=== PATIENT | female | born 1960 | race Caucasian/White ===

== ENCOUNTER → 2016-04-06 | Outpatient (CLI) | payer BC ==
[~2016-04-06] MED LIST: CALC600T48; CHOL100010 PO; FLUT1AER5 INH; LEVO100T7 PO; MONT1TAB3 PO
--- NOTE | 2016-04-06 11:30 | DIAGNOSTIC IMAGING REPORT ---
RIGHT KNEE 2 VIEWS HISTORY: RIGHT KNEE PAIN Right COMPARISON: None. FINDINGS: There is no fracture or dislocation. Soft tissues are unremarkable. No knee effusion. Mild cartilage space narrowing at the medial and lateral compartments of the knee with associated marginal osteophytes. There is moderate cartilage space narrowing at the patellofemoral joint. IMPRESSION: Mild to moderate osteoarthritis within the right knee. No acute fractures. Electronically signed by: Byron Shipley M.D. 04/06/2016 11:28 AM Dictated Date/Time: 04/06/2016 11:26 AM
== END | disposition home or self-care (01) ==
LOC: C.RAD1850 11:12
PROVIDERS: ATTEND Family Medicine
DX: M17.11 Unilateral primary osteoarthritis, right knee (principal)

== ENCOUNTER → 2016-05-22 | Outpatient (CLI) | payer BC ==
--- NOTE | 2016-05-22 12:21 | DIAGNOSTIC IMAGING REPORT ---
CHEST 2 VIEWS ROUTINE CLINICAL HISTORY: R05 [id number] dyspnea COMPARISON STUDY: No previous studies for comparison. FINDINGS: The bones soft tissues and hemidiaphragms are normal. The cardiomediastinal silhouette is normal. The lungs are clear. The pulmonary vasculature is normal. IMPRESSION: Negative chest. Electronically signed by: Kieran Young M.D. 05/22/2016 12:19 PM Dictated Date/Time: 05/22/2016 12:19 PM
== END | disposition home or self-care (01) ==
LOC: C.RAD1850 12:08
PROVIDERS: ATTEND Allergy & Immunology Allergy
DX: R05 Cough (principal)

== ENCOUNTER → 2017-01-15 | Outpatient (CLI) | payer BC ==
--- NOTE | 2017-01-15 14:56 | MAMMOGRAPHY REPORT ---
BILATERAL DIGITAL SCREENING MAMMOGRAM TOMOSYNTHESIS WITH CAD: 01/15/2017 CLINICAL HISTORY: Routine screening. Patient has no complaints. TECHNIQUE: Breast tomosynthesis in addition to standard 2D mammography was performed. Current study was also evaluated with a Computer Aided Detection (CAD) system. COMPARISON: Comparison is made to exams dated: 01/13/2016 mammogram, 01/07/2015 mammogram, 4 mammogram, 12/27/2012 mammogram, and 12/15/2010 mammogram - [facility]. BREAST COMPOSITION: The tissue of both breasts is heterogeneously dense, which may obscure small mas ses. FINDINGS: There are stable biopsy marker clips in the medial left breast. A few stable punctate brady rocalcifications in the left breast. No suspicious mass, architectural distortion or cluster of suspi cious microcalcifications is seen. IMPRESSION: ACR BI-RADS CATEGORY 1: NEGATIVE There is no mammographic evidence of malignancy. A 1 year screening mammogram is recommended. The pa tient will receive written notification of the results. Approximately 10% of breast cancers are not detected with mammography. A negative mammographic report should not delay biopsy if a clinically suggestive mass is present. Safia Martinez M.D. ay/:01/15/2017 08:40:34 Program Coordinator Executive Education: Juany GARCIA(Evelyn)(Clara), [facility] letter sent: Normal 1/2 BI-RADS Code: ACR BI-RADS Category 1: Negative
== END | disposition home or self-care (01) ==
LOC: C.MAMM 08:20
PROVIDERS: ATTEND Family Medicine
DX: Z12.31 Encounter for screening mammogram for malignant neoplasm of breast (principal)

== ENCOUNTER → 2017-02-12 | Outpatient (CLI) | payer BC ==
--- NOTE | 2017-02-12 17:14 | DIAGNOSTIC IMAGING REPORT ---
SINUSES WITH BRAIN LAB CLINICAL HISTORY: 56 years-old Female presenting with CHRONIC SINUSITIS. TECHNIQUE: Multidetector CT of the sinuses was performed without the use of intravenous contrast. IV contrast: None. A dose lowering technique was used consistent with the principles of ALARA (as low as reasonably achievable). COMPARISON: None. CT DOSE (mGy.cm): The estimated cumulative dose is 517.52 mGy.cm. FINDINGS: Certified Medication Technician topogram: Unremarkable. Extensive mucosal thickening involving the bilateral maxillary sinuses and ethmoid air cells. Aerated secretions in the maxillary sinuses also present bilaterally, right greater than left. The medial wall of the right maxillary sinus is symmetrically indistinct (series 300 and image 56) and could imply osseous erosion. No evidence of sclerosis of the maxillary sinus horta. No evidence of osseous dissolution of the ethmoid air cell septae. Extensive fluid in the right mastoid air cells and right middle ear. Osseous septations in the right mastoid intact. The right ostiomeatal unit is obstructed secondary to mucosal thickening. This is also true on the left although to a lesser extent. The bilateral nasofrontal ethmoidal recesses are also obstructed by mucosal thickening. Minimal rightward deviation of the bony nasal septum without evidence of significant bridging or spurring. No dehiscence of the bony optic canals. Remaining soft tissues of the face within normal limits. Limited intracranial evaluation within normal limits. The orbits are intact. Upper cervical spine normal. IMPRESSION: 1. Findings consistent with acute sinusitis of the maxillary sinuses. Extensive mucosal thickening results in obstruction of drainage pathways. There is also suggestion of osseous erosion of the medial wall the right maxillary sinus. This could raise concern for invasive sinusitis in the appropriate clinical setting such as diabetes, neutropenia, or other immunodeficiency. Correlate clinically. The report will be called/faxed according to standard departmental protocol. Electronically signed by: Drew Luque M.D. 02/12/2017 5:12 PM Dictated Date/Time: 02/12/2017 5:04 PM
== END | disposition home or self-care (01) ==
LOC: C.CTS 16:15
PROVIDERS: ATTEND Otolaryngology
DX: J32.9 Chronic sinusitis, unspecified (principal)

== ENCOUNTER → 2017-03-05 | Outpatient (CLI) | payer BC ==
[~2017-03-05] MED LIST changes: -CALC600T48; +CALC600T48 PO; +CHOL1000 PO; +VNTHFA/IN INH
== END | disposition home or self-care (01) ==
LOC: C.CPL 16:13
PROVIDERS: ATTEND Otolaryngology
DX: Z01.818 Encounter for other preprocedural examination (principal)

== ENCOUNTER → 2017-03-08 | Day surgery (SDC) | payer BC ==
[2017-03-07 11:25] VITALS: Ht 165.1 cm; Wt 63.6 kg
--- NOTE | 2017-03-07 15:45 | History and Physical: Surg Cnt ---
History & Physical Date Mar 07, 2017. Chief Complaint sinus and ear infections History of Present Illness The patient is a 57 year old female with complaints of chronic sinusitis and right otitis media Past Medical/Surgical History Medical Problems: (1) Asthma (2) Hypothyroidism Surgical Problems: (1) H/O removal of cyst Additional History Hepatic Disease: No Endocrine Disorder: No Kidney Disease: No Hypertension: No Heart Disease: No Bleeding Tendencies: No Infectious Diseases: No Allergies Coded Allergies: Codeine (Verified Adverse Reaction, Mild, GI SYMPTOMS, 03/07/17) Home Medications Scheduled Calcium Carbonate (Calcium Carbonate), 600 MG PO QAM Cholecalciferol (Vitamin D3), 1,000 UNIT PO QAM Levothyroxine Sodium (Levothyroxine Sodium), 100 MCG PO QAM Montelukast Sodium (Singulair), 10 MG PO QPM Scheduled PRN Albuterol Hfa (Ventolin Hfa), 2-4 PUFFS INH Q6H PRN for Shortness of Breath Fluticasone Propionate (Inhala (Flovent Diskus), 1 PUFFS INH BID PRN for BRONCHITIS Physical Examination Skin: warm/dry, no rash Eyes: normal inspection, EOMI, sclerae normal ENT: normal ENT inspection, pharynx normal Head: normocephalic, atraumatic Neck: supple, no adenopathy, trachea midline Respiratory/Chest: lungs clear, normal breath sounds, no respiratory distress Cardiovascular: regular rate, rhythm, no edema, no murmur Abdomen / GI: normal bowel sounds, non tender Back: normal inspection Extremities: normal inspection, normal range of motion Neurologic/Psych: no motor/sensory deficits, alert, normal reflexes, oriented x 3 Diagnosis chronic sinusitis, right otitis media Plan of Treatment endoscopic sinus surgery, right PE tube
[~2017-03-08] VITALS: Ht 165.1 cm; Wt 63.6 kg
[~2017-03-08] MED LIST changes: +ATROPINE SULFATE 0.1 MG/ML 5ML SYR IV PRN; +CEFAZOLIN 1000MG IV PUSH 5 ML IV SCH; -CHOL100010 PO; +DEXAMETHASONE SOD INJ 4 MG/ML VIAL ONE; +EpHEDrine SULFATE INJ 50 MG/ML AMP IV PRN; +EpHEDrine SULFATE INJ 50 MG/ML AMP ONE; +EpINEphrine INJ 1MG/ML AMP 1 MG/ML AMP ONE; +FENTANYL CITRATE INJ 50 MCG/1 ML 2 ML VIAL IV PRN; +FENTANYL CITRATE INJ 50 MCG/1 ML 2 ML VIAL ONE; +GLYCOPYRROLATE INJ 0.2 MG/ML VIAL ONE; +LACTATED RINGER'S 1000ML 1,000 ML IV SCH; +LIDO 2%/EPINEPHRINE 1:100000 20 ML VIAL INFIL ONE; +LIDOCAINE 4% MPF SOAK 5 ML = 1 DOSE TOP ONE; +LIDOCAINE HCL 2% 2 ML VIAL (20MG/ML) ONE; +MIDAZOLAM HCL 1 MG/ML 2ML VIAL ONE; +NEOSTIGMINE METHYLSULFATE 5 MG/5 ML SYR ONE; +OFLO0.3D4 OT; +OFLOXACIN 0.3% OP SOLN 5 ML BTL ONE; +ONDANSETRON INJ 2 MG/ML 2 ML VIAL IV PRN; +ONDANSETRON INJ 2 MG/ML 2 ML VIAL ONE; +OXYC-57 PO; +OXYCODONE/ACETAMINOPHEN 5-325 TAB ONE; +OXYCODONE/ACETAMINOPHEN 5-325 TAB PO PRN; +PROPOFOL IV EMULSION 10 MG/ML 20 ML VIAL IV ONE; +SODIUM CHLORIDE 0.9% 1000ML 1,000 ML IV SCH; +SODIUM CHLORIDE 0.9% INJ 10 ML VIAL ONE; +TETRACAINE HCL (OPHTH) 60 DROPS/4 ML BTL OP ONE
--- NOTE | 2017-03-08 07:48 | History & Physical Bridge Note ---
H&P Re-Evaluation Bridge Note: I have examined the patient, reviewed the History & Physical and in the interval since the performance of the History & Physical I have noted the following changes of clinical significance: No changes noted
--- NOTE | 2017-03-08 07:50 | Discharge Instructions-SurgCtr ---
Discharge Instructions Date of Service Mar 08, 2017. Visit Reason for Visit: Chronic Sinusitis Discharge Discharge Diagnosis / Problem: same Discharge Goals Goal(s): Improve disease control Activity Recommendations Activity Limitations: per Instructions/Follow-up section Anesthesia . Post Anesthesia Instructions: If you have had General Anesthesia or IV Sedation: * Do not drive today. * Resume driving when surgeon permits. * Do not make important decisions or sign legal documents today. * Call surgeon for: 1. Temperature elevations greater than 101 degrees F. 2. Uncontrollable pain. 3. Excessive bleeding. 4. Persistent nausea and vomiting. 5. Medication intolerance (nausea, vomiting or rash). * For nausea and vomiting use only clear liquids such as: tea, soda, bouillon until nausea subsides, then gradually increase diet as tolerated. * If you have any concerns or questions, call your surgeon's office. If physician is unavailable and it is an emergency, call 911 or go to the nearest emergency room. . Instructions / Follow-Up Instructions / Follow-Up ACTIVITY RECOMMENDATIONS: * Being up and around is good, but no strenuous activity, heavy lifting or physical exertion for one week. * Keep your head elevated 30 degrees when lying down or sleeping. * Do not blow your nose for 48 hours, sniff back instead. * Avoid hot showers. OVER THE COUNTER MEDICATIONS: * You may use Tylenol * Avoid aspirin or aspirin containing products, e.g. as they may increase bleeding. SPECIAL CARE INSTRUCTIONS: * Expect to have bloody drainage from your nose and/or down your throat for one to three days. Change drip pad as needed. * Begin irrigating your nose with saline solution today, at least six to ten times per day and sniff back to help remove old clots or crust. * You may experience nasal and facial congestion, pain and pressure, this is normal. * Please call with any significant and/or progressive pain, redness, swelling around the eyes, visual changes, fever of 101.5 degrees F, active bleeding or any problems or concerns. * If active bleeding occurs, spray the nose three times at one minute intervals with Afrin spray and call or cell phone: . If unable to reach the doctor, go to the nearest Emergency Department. Special Diet: * Avoid extremely hot fluids. FOLLOW UP VISIT: Follow-up Visit with Dr. Salazar If not already scheduled, please call to schedule.ACTIVITY RECOMMENDATIONS: * Take it easy today. * Return to regular activity tomorrow. OVER THE COUNTER MEDICATIONS: * You may use Tylenol for pain * Avoid aspirin or aspirin containing products, e.g. as they may increase bleeding. DIET: Resume previous diet RETURN TO SCHOOL/WORK: May return to normal activities tomorrow. SPECIAL CARE INSTRUCTIONS: * Drainage is not unusual during the first few days after placement of tubes. The drainage may be bloody. If it is foul smelling or very thick, please notify the doctor. Call or cell phone . * Keep water out of the ears when shampooing or bathing. Use cotton balls covered with Vaseline or "Macks" ear plugs. * Call physician if increased pain, fever over 101 degrees F. or any problems. FOLLOW UP VISIT: Follow-up Visit with Dr. Salazar in 2 weeks. Please call to schedule. Diet Recommendations Home Diet: no limitations Pending Studies Studies pending at discharge: no Medical Emergencies . Who to Call and When: Medical Emergencies: If at any time you feel your situation is an emergency, please call [phone] immediately. . Non-Emergent Contact Non-Emergency issues call your: Primary Care Provider . . "Provider Documentation" section prepared by Mary Salazar. . [place] Drug Monitoring Program Search Results: no issues identified
--- NOTE | 2017-03-08 09:52 | [facility] Post Operative Brief Note ---
Immediate Operative Summary Operative Date Mar 08, 2017. Pre-Operative Diagnosis Chronic Sinusitis; Right Otitis Media Post-Operative Diagnosis Same Procedure(s) Performed Endoscopic Sinus Surgery with Tabacus Initative Navigation, Right and Left Frontal Sinus , Maxillary, Total Ethmoidectomies and Sphenoidectomies; Right PE Tube Insertion Surgeon Dr. Salazar Power Reactor Operator Surgeon(s) None Estimated Blood Loss 20 mL Findings polypoid mucosa Specimens None Anesthesia GET Complication(s) None Disposition Recovery Room / PACU
--- NOTE | 2017-03-08 10:10 | OPERATIVE REPORT ---
DATE OF OPERATION: 03/08/2017 PREOPERATIVE DIAGNOSIS: Chronic sinusitis and chronic otitis media of the right ear. POSTOPERATIVE DIAGNOSIS: Same. PROCEDURE: Right and left frontal sinusotomy, right and left total ethmoidectomy, right and left sphenoidotomy and right and left maxillary sinus antrostomies, right PE tube insertion. SURGEON: Dr. Salazar. ANESTHESIA: COMPLICATIONS: None. BLOOD LOSS: 20 mL. INDICATIONS: This 57-year-old lady has had recurrent chronic sinusitis aggravating her asthma requiring multiple inhalers. She was referred by her primary care for definitive treatment. CT documented opacification and pansinusitis. OPERATION AND FINDINGS: PROCEDURE: The patient was brought to the operating room and placed in supine position. General endotracheal anesthesia was induced, prepped, draped in usual sterile manner. The right ear was visualized with the microscope and irrigated clean with peroxide and debrided of cerumen, Myringotomy incision was made inferiorly and a Paparella tube was placed with the alligator forceps and Hammer needle. Tetracaine and ofloxacin drops were placed. The nose was decongested using cottonoid pledgets saturated with a solution of 4 mL of 4% Xylocaine mixed with 1 mL of epinephrine. Injection of 2% Xylocaine 1:100,000 strength epinephrine was also used. The left sphenoid was cannulated with a guidewire with [employer] computer guidance and dilated using the 6 mm balloon and then irrigated clean with saline. The right sphenoid was also dilated with the computer guidance and irrigated clean. Left maxillary sinus cannulated with guidewire and dilated using 6 mm balloon and irrigated clean with saline as was the right maxillary sinus. At this point, the left nasofrontal duct was cannulated with the guidewire with [employer] computer guidance and dilated using the 6 mm balloon. The guidewire was left in place as a marker. Frontal sinusotomy was performed by using the shaver coupled with the Zeppelin device opening up the anterior ethmoid air cells and the agger nasi cell, opening up the anterior wall and then the posterior wall of the agger nasi cell leaving the mucosa in the nasofrontal duct intact. At this point, total ethmoidectomy was performed opening up the bullae ethmoidalis going through the ground lamella into the posterior ethmoid air cells, delineating the posterior most ethmoid air cell and then delineating the skull base superiorly and lamina papyracea laterally with the [employer] device and then following these structures anteriorly to exonerate all the posterior and all the anterior ethmoid air cells up to the previously dilated nasofrontal duct finding significantly thickened mucosa and polypoid change of all the ethmoid sinuses. The maxillary sinus was opened by removing the polypoid posterior mucosa at the posterior border of the dilated maxillary ostia. The sphenoid was opened by removing polypoid mucosa at the anterior face at the inferior border of the superior turbinate. The right frontal sinusotomy, total ethmoidectomy, and maxillary sinus antrostomy, sphenoidotomy was performed in similar manner. The right maxillary sinus had to be connected to an accessory ostia to create 1 common opening at the ostiomeatal complex. Propel stents were placed in the middle meatus area after placing Contour stents in the nasofrontal ducts. The patient tolerated the procedure well and was taken to recovery area in satisfactory condition. I attest to the content of the Intraoperative Record and any orders documented therein. Any exceptions are noted below. GARO
[2017-03-08 10:50] VITALS: TEMP 36.5
--- NOTE | 2017-03-08 11:18 | Anesthesiology Progress Note ---
Anesthesia Post Op Note Date & Time Mar 08, 2017 at 11:18 Vital Signs Pain Intensity: 6 Vital Signs Past 12 Hours Date Time Temp Pulse Resp B/P (MAP) Pulse Ox O2 Delivery O2 Flow Rate FiO2 03/08/17 10:58 85 122/66 (84) 95 Room Air 03/08/17 10:51 76 10 03/08/17 10:51 75 10 127/82 95 03/08/17 10:51 75 10 127/82 95 03/08/17 10:51 76 10 03/08/17 10:50 36.5 76 20 127/82 95 Room Air 03/08/17 10:46 94 16 142/98 94 03/08/17 10:46 97 16 03/08/17 10:46 97 16 03/08/17 10:46 94 16 142/98 94 03/08/17 10:41 70 17 03/08/17 10:41 69 17 121/77 97 03/08/17 10:41 69 17 121/77 97 03/08/17 10:41 70 17 03/08/17 10:36 71 14 119/82 97 03/08/17 10:36 69 14 03/08/17 10:36 71 14 119/82 97 03/08/17 10:36 69 14 03/08/17 10:31 80 14 03/08/17 10:31 80 14 126/86 97 03/08/17 10:31 80 14 126/86 97 03/08/17 10:31 80 14 03/08/17 10:26 83 0 130/88 95 03/08/17 10:26 84 0 03/08/17 10:26 83 0 130/88 95 03/08/17 10:26 84 0 03/08/17 10:21 99 7 03/08/17 10:21 99 7 137/86 99 03/08/17 10:21 99 7 03/08/17 10:21 99 7 137/86 99 03/08/17 10:16 89 7 131/85 100 03/08/17 10:16 89 7 131/85 100 03/08/17 10:16 90 7 03/08/17 10:16 90 7 03/08/17 10:11 105 15 137/80 99 03/08/17 10:11 107 15 03/08/17 10:11 105 15 137/80 99 03/08/17 10:11 107 15 03/08/17 10:06 102 16 141/84 100 03/08/17 10:06 102 16 03/08/17 10:06 102 16 03/08/17 10:06 102 16 141/84 100 03/08/17 10:01 106 19 03/08/17 10:01 106 19 143/87 99 03/08/17 10:01 106 19 03/08/17 10:01 106 19 143/87 99 03/08/17 09:57 145/94 03/08/17 09:57 145/94 03/08/17 09:56 36.9 122 20 145/94 99 Humidified Oxygen 6 Mask 03/08/17 09:56 119 03/08/17 09:56 119 97 03/08/17 09:56 119 03/08/17 09:56 119 97 03/08/17 07:14 37 69 16 138/89 (105) 98 Room Air Notes Mental Status: alert / awake / arousable, participated in evaluation Pt Amnestic to Procedure: Yes Nausea / Vomiting: adequately controlled Pain: adequately controlled Airway Patency, RR, SpO2: stable & adequate BP & HR: stable & adequate Hydration State: stable & adequate Anesthetic Complications: no major complications apparent
[2017-03-08 11:43] VITALS: BP 130/84; PULSE 65; O2SAT 95
== END | disposition home or self-care (01) ==
LOC: X.SURG 06:41
PROVIDERS: ATTEND Otolaryngology
DX: J32.9 Chronic sinusitis, unspecified (principal); H66.91 Otitis media, unspecified, right ear; J45.909 Unspecified asthma, uncomplicated; M19.90 Unspecified osteoarthritis, unspecified site; N18.9 Chronic kidney disease, unspecified; Z88.5 Allergy status to narcotic agent; E03.9 Hypothyroidism, unspecified; Z90.89 Acquired absence of other organs; Z98.890 Other specified postprocedural states